=== PATIENT | male | born 2000 | race Caucasian/White ===

== ENCOUNTER 2022-05-13 13:21 | Outpatient (CLI) | payer BC, SELFPAY | END 2022-05-13 13:22 | disposition home or self-care (01) | LOC: LKVREF 13:22 | PROVIDERS: Visit Provider Emergency Medicine | DX: Z00.00 Encounter for general adult medical examination without abnormal findings (principal); Z13.6 Encounter for screening for cardiovascular disorders | CPT/HCPCS: 80061 ==